=== PATIENT | male | born 1980 | race Caucasian/White ===

== ENCOUNTER 2020-10-07 17:47 | Emergency (ER) | payer BC, OTHER ==
[~2020-10-07] VITALS: Ht 185 cm; Wt 90.7 kg
[~2020-10-07 17:47] MED LIST: PRM25T PO
[2020-10-07 18:18] LABS: BILIRUBIN,URINE NEGATIVE (NEGATIVE); CLARITY,URINE CLEAR; COLOR,URINE YELLOW; GLUCOSE, URINE (UA) NEGATIVE (NEGATIVE); KETONES,URINE NEGATIVE (NEGATIVE); LEUKOCYTE ESTERASE ,URINE NEGATIVE (NEGATIVE); NITRITE,URINE NEGATIVE (NEGATIVE); PH,URINE 5.5 (5-9); PROTEIN,URINE NEGATIVE (NEGATIVE)
[2020-10-07 18:31] LABS: BACTERIA,URINE NEGATIVE /HPF
--- NOTE | 2020-10-07 18:40 | ED Abdominal Pain ---
General Chief Complaint: Male Reproductive Stated Complaint: PAIN IN GROIN Nursing Triage Note: PT PRESENTS TO ED FOR GROIN PAIN X'S TWO WEEKS. PER PT HE FEELS LIKE THERE IS DISCOLORATION BEHIND HIS RT TESTICLE. PT HAS SEEN DR. ROMAN FOR THIS AND WAS REFERRED ONTO DR. ROLDAN FOR A POSSIBLE HERNIA. PT AMB. TO FT3 WITHOUT DIFFICULTY. Sepsis Screen: No Definite Risk Source of Information: Patient History of Present Illness Date Seen by Provider: Oct 07, 2020 Time Seen by Provider: 18:10 Initial Comments PT ARRIVES VIA POV FROM HOME C/O RIGHT GROIN/TESTICULAR PAIN, RADIATING UP TO RLQ/RIGHT MID ABDOMEN AND RIGHT FLANK X 2 WEEKS STATES HE HAS PAIN ON THE BACK SIDE OF HIS RIGHT TESTICLE NO URINARY SYMPTOMS, BUT STATES HE HAS PAIN IN HIS URETHRA WITH BM'S, BUT NO WITH URINATION NO NAUSEA/VOMITING/DIARRHEA/CONSTIPATION NO FEVER NO UNUSUAL ACTIVITY, BUT DOES DO ALOT OF HEAVY LIFTING AT WORK SAW DR. ROMAN 1 1/2 WEEKS AGO FOR THIS, THOUGHT HE MIGHT HAVE A HERNIA, BUT NO TESTS WERE DONE. REFERRED TO DR. ROLDAN, AND HAS AN APPOINTMENT 10/19/20 SYMPTOMS NO DIFFERENT TODAY TOOK 2 TYLENOL PRIOR TO ARRIVAL, OTHERWISE HAS NOT TAKEN ANYTHING FOR PAIN STATS HIS PARENTS TOLD HIM TO COME TO [facility] "TO SPEED THINGS UP" LATER STATES HE HAS SEEN DR. SUAZO ABOUT A YEAR AGO FOR SIMILAR TESTICULAR PAIN, AND DID NOT FIND ANY SIGNIFICANT ABNORMALITIES PCP: DR. ROMAN Allergies and Home Medications Allergies Coded Allergies: No Known Drug Allergies (Unverified , 08/19/14) Home Medications Promethazine Hcl 25 Mg Tab, 25 MG PO Q6H PRN for NAUSEA/VOMITING Prescribed by: NIRU KAUFMAN on 08/19/14 0959 Patient Home Medication List Home Medication List Reviewed: Yes Review of Systems Review of Systems Constitutional: no symptoms reported Respiratory: No Symptoms Reported Cardiovascular: No Symptoms Reported Gastrointestinal: See HPI, Abdominal Pain Genitourinary: See HPI, Flank Pain Musculoskeletal: see HPI, back pain Skin: no symptoms reported Psychiatric/Neurological: No Symptoms Reported Endocrine: No Symptoms Reported Hematologic/Lymphatic: No Symptoms Reported Past Gvncpek-Fmniiz-Bpzwfd Hx Past Med/Social Hx: Reviewed and Corrections made Patient Social History Drug of Choice: DENIES Smoking Status: Never a Smoker Recent Infectious Disease Expo: No Recent Hopitalizations: No Seasonal Allergies Seasonal Allergies: No Past Medical History Surgeries: Yes (URETHRAL DILATION AGE 6; WISDOM TEETH) Bladder Surgery Respiratory: No Cardiac: No Neurological: No Genitourinary: Yes (URETHRAL DILATION AGE 6) Gastrointestinal: No Musculoskeletal: No Endocrine: No HEENT: No (WISDOM TEETH REMOVED) Cancer: No Psychosocial: No Integumentary: No Blood Disorders: No Family Medical History No Pertinent Family Hx Physical Exam Vital Signs Vital Signs - First Documented 10/07/20 18:00 Temp 35.9 Pulse 88 Resp 14 B/P (MAP) 134/94 (107) Pulse Ox 100 O2 Delivery Room Air Capillary Refill : Less Than 3 Seconds Height/Weight/BMI Height: 6'1" Weight: 160lbs. oz. 72.236808cr; 26.00 BMI Method: General Appearance: WD/WN, no apparent distress, other (WALKS UPRIGHT AND MOVES WITHOUT DIFFICULTY) Respiratory: normal breath sounds, no respiratory distress, no accessory muscle use Cardiovascular: regular rate, rhythm, no murmur Gastrointestinal: normal bowel sounds, soft, no organomegaly, no pulsatile mass; No distended, No guarding, No rebound; tenderness (SLIGHT RIGHT MID ABDOMINAL TENDERNESS. 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, no motor/sensory deficits, alert, normal mood/affect, oriented x 3 Skin: normal color, warm/dry; No rash Progress/Results/Core Measures Results/Orders Lab Results Laboratory Tests Test 10/07/20 16:42 10/07/20 18:11 Range/Units White Blood Count 7.0 4.3-11.0 10^3/uL Red Blood Count 4.56 4.30-5.52 10^6/uL Hemoglobin 14.7 13.3-17.7 g/dL Hematocrit 42 40-54 % Mean Corpuscular Volume 92 80-99 fL Mean Corpuscular Hemoglobin 32 25-34 pg Mean Corpuscular Hemoglobin Concent 35 32-36 g/dL Red Cell Distribution Width 12.4 10.0-14.5 % Platelet Count 251 130-400 10^3/uL Mean Platelet Volume 10.6 9.0-12.2 fL Immature Granulocyte % (Auto) 0 % Neutrophils (%) (Auto) 61 42-75 % Lymphocytes (%) (Auto) 28 12-44 % Monocytes (%) (Auto) 7 0-12 % Eosinophils (%) (Auto) 4 0-10 % Basophils (%) (Auto) 1 0-10 % Neutrophils # (Auto) 4.3 1.8-7.8 10^3/uL Lymphocytes # (Auto) 1.9 1.0-4.0 10^3/uL Monocytes # (Auto) 0.5 0.0-1.0 10^3/uL Eosinophils # (Auto) 0.3 0.0-0.3 10^3/uL Basophils # (Auto) 0.1 0.0-0.1 10^3/uL Immature Granulocyte # (Auto) 0.0 0.0-0.1 10^3/uL Sodium Level 140 135-145 MMOL/L Potassium Level 3.8 3.6-5.0 MMOL/L Chloride Level 101 98-107 MMOL/L Carbon Dioxide Level 28 21-32 MMOL/L Anion Gap 11 5-14 MMOL/L Blood Urea Nitrogen 10 7-18 MG/DL Creatinine 0.99 0.60-1.30 MG/DL Estimat Glomerular Filtration Rate > 60 BUN/Creatinine Ratio 10 Glucose Level 109 H 70-105 MG/DL Calcium Level 9.3 8.5-10.1 MG/DL Corrected Calcium 9.0 8.5-10.1 MG/DL Total Bilirubin 0.2 0.1-1.0 MG/DL Aspartate Amino Transf (AST/SGOT) 32 5-34 U/L Alanine Aminotransferase (ALT/SGPT) 47 0-55 U/L Alkaline Phosphatase 76 40-136 U/L Total Protein 7.6 6.4-8.2 GM/DL Albumin 4.4 3.2-4.5 GM/DL Amylase Level 79 25-125 U/L Lipase 24 8-78 U/L Urine Color YELLOW Urine Clarity CLEAR Urine pH 5.5 5-9 Urine Specific Casanova 1.015 L 1.016-1.022 Urine Protein NEGATIVE NEGATIVE Urine Glucose (UA) NEGATIVE NEGATIVE Urine Ketones NEGATIVE NEGATIVE Urine Nitrite NEGATIVE NEGATIVE Urine Bilirubin NEGATIVE NEGATIVE Urine Urobilinogen 0.2 < = 1.0 MG/DL Urine Leukocyte Esterase NEGATIVE NEGATIVE Urine RBC (Auto) NEGATIVE NEGATIVE Urine RBC NONE /HPF Urine WBC NONE /HPF Urine Squamous Epithelial Cells NONE /HPF Urine Crystals NONE /LPF Urine Bacteria NEGATIVE /HPF Urine Casts NONE /LPF Urine Mucus NEGATIVE /LPF Urine Culture Indicated NO My Orders Orders - REECE MARQUEZ DO Ua Culture If Indicated (10/07/20 18:09) Ed Iv/Invasive Line Start (10/07/20 18:17) Amylase (10/07/20 18:17) Cbc With Automated Diff (10/07/20 18:17) Comprehensive Metabolic Panel (10/07/20 18:17) Lipase (10/07/20 18:17) Ct Abd/Pelvis Wo(Kidney Stone) (10/07/20 18:17) Abdomen/Kub 1view (10/07/20 18:17) Vital Signs/I&O 10/07/20 18:00 Temp 35.9 Pulse 88 Resp 14 B/P (MAP) 134/94 (107) Pulse Ox 100 O2 Delivery Room Air Blood Pressure Mean: 107 Diagnostic Imaging Comments PER RADIOLOGIST REPORTS AT 1906: ABD XRAY--NO ACUTE PROCESS CT ABDOMEN/PELVIS-- FINDINGS: Heart size is normal. The lung bases are clear. The liver is normal in size without focal lesions. Gallbladder is unremarkable. No biliary duct dilatation. Spleen is normal. The pancreas and adrenal glands are unremarkable. The kidneys normal in appearance. There is no evidence of nephrolithiasis or obstructive uropathy. The aorta is nonaneurysmal. The bowel gas pattern is nonspecific. No free air. No ascites. There are no focal inflammatory changes. Bladder is normal. There is no pelvic mass, adenopathy or free fluid. The osseous structures are unremarkable. IMPRESSION: Unremarkable noncontrast CT abdomen and pelvis. Specifically the gallbladder is normal. There is no evidence of nephrolithiasis or obstructive uropathy. There is no CT evidence of appendicitis. Reviewed: Reviewed by Me Departure Impression Primary Impression: RIGHT TESTICULAR AND GROIN PAIN Additional Impression: RIGHT FLANK AND RIGHT SIDED ABDOMINAL PAIN Disposition: 01 HOME, SELF-CARE Condition: Stable Departure-Patient Inst. Decision time for Depature: 19:12 Referrals: RAYMUNDO ROLDAN FLOYD R MD (PCP/Family) Primary Care Physician BRITTA SUAZO MD Patient Instructions: Groin Strain ED Add. Discharge Instructions: TYLENOL AND MOTRIN NEEDED FOR PAIN KEEP YOUR APPOINTMENT WITH DR. ROLDAN ALSO FOLLOW UP WITH DR. SUAZO FOR FURTHER EVALUATION--CALL IN AM TO SCHEDULE AN APPOINTMENT All discharge instructions reviewed with patient and/or family. Voiced understanding. REECE MARQUEZ DO Oct 07, 2020 18:40
[2020-10-07 18:51] LABS: BASOPHILS # (AUTO) 0.1 10^3/uL (0.0-0.1); BASOPHILS % (AUTO) 1 % (0-10); EOSINOPHILS # (AUTO) 0.3 10^3/uL (0.0-0.3); EOSINOPHILS % (AUTO) 4 % (0-10); HEMATOCRIT 42 % (40-54); HEMOGLOBIN 14.7 g/dL (13.3-17.7); LYMPHOCYTES # (AUTO) 1.9 10^3/uL (1.0-4.0); LYMPHOCYTES % (AUTO) 28 % (12-44); MEAN CORPUSCULAR HEMOGLOBIN 32 pg (25-34); MEAN CORPUSCULAR HGB CONC 35 g/dL (32-36); MEAN CORPUSCULAR VOLUME 92 fL (80-99); MEAN PLATELET VOLUME 10.6 fL (9.0-12.2); MONOCYTES # (AUTO) 0.5 10^3/uL (0.0-1.0); MONOCYTES % (AUTO) 7 % (0-12); NEUTROPHILS # (AUTO) 4.3 10^3/uL (1.8-7.8); NEUTROPHILS % (AUTO) 61 % (42-75); PLATELET COUNT 251 10^3/uL (130-400)
--- NOTE | 2020-10-07 19:00 | Diagnostic Imaging Report ---
PROCEDURE: CT urinary tract, rule out kidney stone. TECHNIQUE: Multiple contiguous axial images were obtained through the abdomen and pelvis without the use of intravenous contrast. Auto Exposure Controls were utilized during the CT exam to meet ALARA standards for radiation dose reduction. INDICATION: Groin pain on the right. FINDINGS: Heart size is normal. The lung bases are clear. The liver is normal in size without focal lesions. Gallbladder is unremarkable. No biliary duct dilatation. Spleen is normal. The pancreas and adrenal glands are unremarkable. The kidneys normal in appearance. There is no evidence of nephrolithiasis or obstructive uropathy. The aorta is nonaneurysmal. The bowel gas pattern is nonspecific. No free air. No ascites. There are no focal inflammatory changes. Bladder is normal. There is no pelvic mass, adenopathy or free fluid. The osseous structures are unremarkable. IMPRESSION: Unremarkable noncontrast CT abdomen and pelvis. Specifically the gallbladder is normal. There is no evidence of nephrolithiasis or obstructive uropathy. There is no CT evidence of appendicitis. Dictated by: Dictated on workstation # [id number]
--- NOTE | 2020-10-07 19:05 | Diagnostic Imaging Report ---
Indication: Right groin pain, hernia. Findings: Bowel gas pattern unremarkable. No abnormal fecal loading. No suspicious calcifications. No mass effect. Impression: Unremarkable abdominal radiographs. Dictated by: Dictated on workstation # [id number]
[2020-10-07 19:21] LABS: ALANINE AMINOTRANSFERASE 47 U/L (0-55); ALBUMIN 4.4 GM/DL (3.2-4.5); ALKALINE PHOSPHATASE 76 U/L (40-136); AMYLASE 79 U/L (25-125); BILIRUBIN,TOTAL 0.2 MG/DL (0.1-1.0); BUN/CREATININE RATIO 10; CALCIUM 9.3 MG/DL (8.5-10.1); CARBON DIOXIDE 28 MMOL/L (21-32); CHLORIDE 101 MMOL/L (98-107); CREATININE SERUM 0.99 MG/DL (0.60-1.30); GFR ESTIMATED > 60; GLUCOSE 109 MG/DL (70-105); LIPASE 24 U/L (8-78); POTASSIUM 3.8 MMOL/L (3.6-5.0); SODIUM 140 MMOL/L (135-145); TOTAL PROTEIN 7.6 GM/DL (6.4-8.2)
[2020-10-07 19:54] VITALS: BP 117/70
== END 2020-10-07 19:54 | disposition home or self-care (01) ==
LOC: EDUNIT# 17:47 → ER 17:50
DX: N50.811 Right testicular pain (principal); R10.31 Right lower quadrant pain
CPT/HCPCS: 36415; 74018; 74176; 80053; 81000; 82150; 83690; 85025

== ENCOUNTER → 2020-10-20 | Outpatient (CLI) | payer BC ==
--- NOTE | 2020-10-20 12:25 | Diagnostic Imaging Report ---
EXAMINATION: US SCROTUM (Testicle) [id number]. TECHNIQUE: Salazar-scale, color doppler and spectral duplex imaging of the scrotum and its contents was performed. INDICATION: Right-sided testicular pain. COMPARISON: None available. FINDINGS: Right: The right testis is normal in size measuring 4.4 x 1.9 x 2.8 cm. It has homogenous echogenicity without mass or microcalcification. Blood flow is present in the right testis by color doppler imaging, and low resistance waveforms are present. The epididymis is normal. No hydrocele or varicole. Left: The left testis is normal in size measuring 4.0 x 1.9 x 2.6 cm. It has homogenous echogenicity without mass or microcalcification. Blood flow is present in the left testis by color doppler imaging, and low resistance waveforms are present. The epididymis is normal. No hydrocele. Dilated tubular anechoic structures located superior to the left testicle filled with color Doppler imaging and are compatible with a hydrocele. IMPRESSION: 1. No testicular torsion or mass. 2. Small left-sided varicocele. Dictated by: Dictated on workstation # [id number]
== END ==
LOC: RAD 08:43
PROVIDERS: ATTEND Surgery
DX: I86.1 Scrotal varices (principal)
CPT/HCPCS: 76870